=== PATIENT | female | born 1955 | race Caucasian/White ===

== ENCOUNTER 2017-01-14 10:12 | Emergency (ER) | payer OTHER ==
[2017-01-14 10:20] VITALS: BP 122/72
[2017-01-14] MEDS ORDERED: DIPHTH,PERTUSS(ACELL),TET VAC 0.5 ML VIAL IM ONE ×2 (10:27→10:31)
--- NOTE | 2017-01-14 10:27 | ERNOTE ---
Integumentary HPI - Narrative Date of Service: 01/14/17 - General Presenting Symptoms: other - foreign body hand Time Seen by Provider: 01/14/17 10:15 Source: patient Exam Limitations: no limitations - Immun/Allergies/Home Medications Immunizations: IMMUNIZATION HX Immunizations Up to Date No History of Influenza Vaccine No Hx Pneumococcal Vaccination No Allergies/Adverse Reactions: Allergies Allergy/AdvReac Type Severity Reaction Status Date / Time No Known Allergies Allergy Unverified 01/14/17 10:20 Home Medications: HOME MEDICATIONS Levothyroxine Sodium [Synthroid] 100 mcg PO DAILY 01/14/17 [Last Taken Unknown] - History of Present Illness Narrative: Pt. comes in with c/o glass in her R hand that she obtained when a decorative globe broke and she was picking up the pieces. Pt. denies any fever, numbness, tingling, SOB, CP, NVD, recent illness, headache, alleviating factors but states that touching it made her pass out as she passes out with injuries and blood. Review of Systems - Review of Systems Constitutional: Present: no symptoms reported EYE: Present: no symptoms reported ENT: Present: no symptoms reported Respiratory: Present: no symptoms reported. Absent: shortness of breath, cough , wheezing Cardiology: Present: no symptoms reported. Absent: chest pain, palpitations, claudication Gastrointestinal/Abdominal: Present: no symptoms reported Genitourinary: Present: no symptoms reported. Absent: frequency, decreased urinary output Musculoskeletal: Present: no symptoms reported. Absent: back pain, joint pain Skin: Present: other - laceration from galss with retained piece Neurological: Present: no symptoms reported. Absent: headache, dizziness/light- headedness, numbness, tingling All Other Systems: All systems neg except as marked - Patient's Past Medical History Patient History - Medical: No pertinent hx - Family History Mother Family History - Medical: Diabetes Type 2, Dementia Father Family History - Medical: Alzheimer's Disease - Social History Smoking Status: Never smoker Have you smoked in the past 12 months: No Do you dip or chew tobacco: No - Immunizations Immunizations Up to Date: No Hx Pneumococcal Vaccination: No History of Influenza Vaccine: No Physical Exam - Physical Exam General Appearance: Present: wd/wn, alert, no apparent distress Eye Exam: Normal inspection: bilateral, PERRL: bilateral, EOMI: bilateral Neck: Present: normal inspection Respiratory: Present: no respiratory distress, normal breath sounds, no accessory muscle use, chest nontender, lungs clear Cardiovascular/Chest: Present: regular rate, rhythm, no murmur, normal peripheral pulses Extremity Exam: Present: normal range of motion, no edema, other - tenderness R palm with skin flap laceration superficial Neurological Exam: Present: alert, oriented, normal mood/affect, no motor/ sensory deficits Skin Exam: Present: normal color, warm/dry ED Progress - Date and Time Seen: Date and Time: 01/14/17 10:42 lump under skin adjacent to wound feels sot but not fluid filled and as glass is thin and sharp do not feel that this foreign body. Wound explored without glass noted. 01/14/17 10:44 Glass foreign body not completely ruled out but feel it is unlikely so will have pt. follow up with her PCP in the chance that the glass starts to work its way out - Vital Signs Patient's Vital Signs:: I have reviewed the patient's vital signs. Vital Signs: Vital Signs 01/14/17 10:16 Temperature 36.9 C Pulse Rate 70 Respiratory 18 Rate Blood Pressure 122/72 O2 Sat by Pulse 95 Oximetry - X-Ray X-Ray #1 X-Ray: hand Interpretation: Reviewed by me X-ray Comments: soft tissue swelling no foreign body noted. Departure Clinical Impression: Laceration - Departure Disposition: Home self-care Condition: Good Instructions: Laceration Care, Adult, [id number] Additional Instructions: Please follow up with primary provider in 2-3 days for wound check.
[2017-01-14] MEDS ORDERED: LIDOCAINE/PRILOCAINE 1 APPL KIT TP ONE ×2 (10:44→10:47)
== END 2017-01-14 11:05 | disposition home or self-care (01) ==
LOC: ER 10:12
DX: S61.411A Laceration without foreign body of right hand, initial encounter (principal); W25.XXXA Contact with sharp glass, initial encounter; Y93.9 Activity, unspecified; Y92.9 Unspecified place or not applicable; Y99.9 Unspecified external cause status